=== PATIENT | male | born 1960 ===

== ENCOUNTER 2025-02-04 11:45 | Outpatient (REF) | payer MEDICARE, SELFPAY ==
[2025-02-04 15:25] LABS: Abs Immature Grans 0.02 10^3/uL (0.0-0.06); HCT 41.7 % (40.0-50.0); HGB 14.3 g/dL (13.5-17.5); Immature Grans % 0.2 %; MCH 30.8 pg (27.0-33.0); MCHC 34.3 % (32.0-36.0); MCV 90 fL (80-95); MPV 11.3 fL (8.0-11.0); Platelet Count 274 10^3/uL (130-400); RBC 4.64 10^6/uL (4.36-5.78); RDW 12.4 % (11.8-14.1); RDW-SD 40.4 fL; WBC 9.68 10^3/uL (4.4-10.8)
[2025-02-04 15:37] LABS: Magnesium 2.2 mg/dL (1.6-2.6)
[2025-02-04 15:42] LABS: Vitamin B12 560 pg/mL (211-911)
== END 2025-02-04 11:46 | disposition home or self-care (01) ==
LOC: NCHCN 11:45
PROVIDERS: Visit Provider Nurse Practitioner Family
DX: E53.8 Deficiency of other specified B group vitamins (principal); Z51.81 Encounter for therapeutic drug level monitoring
CPT/HCPCS: 82607; 83735; 85025